=== PATIENT | female | born 1990 | race Caucasian/White ===

== ENCOUNTER 2017-07-17 13:49 | Emergency (ER) | payer OTHER ==
[~2017-07-17] VITALS: Ht 165.1 cm; Wt 78.9 kg
[~2017-07-17 13:49] MED LIST: BCPILLS PO
[2017-07-17 14:00] VITALS: TEMP 36.8; Ht 165.1 cm; Wt 78.9 kg
[2017-07-17] MEDS ORDERED: BNT10 (14:30)
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
[2017-07-17] MEDS ORDERED: IBUPROFEN 600 MG TAB PO STA (15:11)
[2017-07-17 15:35] VITALS: BP 129/77; PULSE 75; O2SAT 99
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
== END 2017-07-17 15:47 | disposition home or self-care (01) ==
LOC: C.EDB 13:52 → C.EDD 15:47
DX: M54.9 Dorsalgia, unspecified (principal); V89.2XXA Person injured in unspecified motor-vehicle accident, traffic, initial encounter; K58.9 Irritable bowel syndrome, unspecified

== ENCOUNTER 2021-11-30 23:15 | Inpatient (IN) ==
[2021-12-01] MEDS ORDERED: OXYTOCIN 30 UNITS/500 ML BAG IV PRN ×3 (00:01→21:41)
[2021-12-01] MEDS ORDERED: miSOPROStoL 50 MCG TAB PO ONE ×2 (00:01→04:53)
[2021-12-01 00:56] LABS: Hematocrit (blood only) 35.2 % (37-47); Mean Corpuscular Hemoglobin 30.5 pg (25-34); Mean Corpuscular Hgb Conc 34.1 g/dL (32-36); Mean Corpuscular Volume 89.6 fL (80-100); Mean Platelet Volume 11.3 fL (7.4-10.4); Platelet Count 218 K/uL (130-400); RDW Coefficient of Variation 13.7 % (11.5-14.5); RDW Standard Deviation 45.4 fL (36.4-46.3); Red Blood Count 3.93 M/uL (4.2-5.4); White Blood Count 13.61 K/uL (4.8-10.8)
[2021-12-01] MEDS: LACTATED RINGER'S 1,000 ML IV PRN ×2 (13:05→19:21)
[2021-12-01] MEDS ORDERED: BUTORPHANOL TARTRATE 1 MG/ML VIAL IV PRN (15:45)
[2021-12-01] MEDS ORDERED: ePHEDrine sulfate 50 MG/ML AMP ONE (18:16)
[2021-12-01] MEDS ORDERED: fentaNYL citrate 100 MCG/2 ML VIAL ONE (18:17)
[2021-12-01] MEDS ORDERED: SODIUM CHLORIDE 0.9% INJ 10 ML VIAL ONE (18:17)
[2021-12-01] MEDS ORDERED: fentaNYL 2MCG/ML ROPIVACAINE 1.25MG/ML 100 ML BAG EPI ONE (18:17)
[2021-12-01] MEDS ORDERED: BUPIVACAINE 0.25% 30 ML VIAL ONE (18:17)
[2021-12-01] MEDS ORDERED: NALBUPHINE HCL INJ 10 MG/ML AMP IV PRN (18:50)
[2021-12-01] MEDS ORDERED: fentaNYL 2MCG/ML ROPIVACAINE 1.25MG/ML 100 ML BAG EPI PRN (18:50)
[2021-12-01] MEDS ORDERED: ePHEDrine sulfate 50 MG/ML AMP IV PRN (18:50)
[2021-12-01] MEDS ORDERED: NALOXONE HCL 1 MG in SODIUM CHLORIDE 0.9% 1000ML 1,000 ML IV PRN (18:50)
[2021-12-01] MEDS ORDERED: ONDANSETRON INJ 2 MG/ML 2 ML VIAL IV PRN (18:50)
[2021-12-01] MEDS ORDERED: diphenhydrAMINE 50 MG/ML VIAL IV PRN (18:50)
[2021-12-01] MEDS ORDERED: NALOXONE HCL 0.4 MG/1 ML VIAL/CARP IV PRN (18:50)
--- NOTE | 2021-12-01 19:00 | Anesthesiology Consultation ---
Date of Service December 01, 2021 Assessment & Plan Chart Review Chart Review: Patient NOT seen in Pre Admission Testing and Acceptable Risk for Labor Epidural Consults Requested none ASA ASA2 Proposed Anesthesia Anesthesia Type: Labor Epidural and CSE Risk / Benefits Reviewed With: PT / POA / Parent / Guardian, Accepts Plan and Informed Consent Obtained History Height/Weight Height: 5 ft 5 in Weight: 102.058 kg Allergies Allergy/AdvReac Type Severity Reaction Status Date / Time lactose Allergy Unknown irritable Verified 11/30/21 23:44 bowel Medications Home Medications Medication Instructions Recorded Confirmed Last Taken 1 1 cap PO DAILY 11/17/21 11/30/21 11/30/21 Active Medications Generic Name Dose Route Start Last Admin Trade Name Freq PRN Reason Stop Dose Admin Butorphanol Tartrate 1 mg 12/01/21 15:45 12/01/21 16:02 Butorphanol Tartrate 1 Mg/Ml Vial IV 12/31/21 15:44 1 mg PRN PRN Administration Pain Lactated Ringer's 1,000 mls @ 125 mls/hr 12/01/21 00:01 12/01/21 13:05 Lr IV 12/03/21 00:00 125 mls/hr .Q8H PRN Administration L&D Protocol Protocol Oxytocin 30 units in 500 mls @ 16 mls/hr 12/01/21 12:38 12/01/21 17:45 Pitocin IV 12/03/21 12:37 0.96 units/hr .Q24H PRN 16 mls/hr Labor Induction/Augmentation Titration Protocol 0.96 UNITS/HR NPO Date Last Intake of Fluids: 12/01/21 Time Last Intake of Fluids: 18:00 Date Last Intake of Solids: 12/01/21 Time Last Intake of Solids: 12:00 Past Medical History Medical History No known health problems Exercise / Class Metabolic Activity II 4-5 Yardwork/Stairs/Walk up hill Past Anesthesia History No Hx of Anesthesia Complications and No Family Hx of Anesthesia Complications History of PONV No Hx of PONV and No Hx of Motion Sickness Social History Smoking Status: Never smoker Hx Alcohol Use: No Hx Substance Use: No Review of Systems no chest pain or sob Physical Exam Vital Signs Last Vital Signs Temp 37.0 C 12/01/21 07:05 Pulse 92 H 12/01/21 18:54 Resp 18 12/01/21 07:05 BP 142/81 H 12/01/21 18:08 Pulse Ox 100 12/01/21 18:54 ENMT Mouth: no TMJ abnormality Thyromental Distance: > or= 3.5 Finger Breadths Mallampati Class: II Neck normal visual inspection Respiratory normal respiratory effort Auscultation: lungs clear to auscultation bilaterally Cardiovascular Rate/Rhythm: regular rate and regular rhythm Musculoskeletal Spine: normal cervical ROM Neurologic moves all extremities Psychiatric Orientation: alert and oriented x 3 Testing Laboratory Results 12/01/21 00:24 Blood Type O Positive 12/01/21 00:24 Antibody Screen NEGATIVE 12/01/21 00:24
[2021-12-01] MEDS ORDERED: ACETAMINOPHEN 325 MG TAB PO PRN (21:41)
[2021-12-01] MEDS ORDERED: bisacodyL 10 MG SUPP PR PRN (21:41)
[2021-12-01] MEDS ORDERED: BENZOCAINE 20% AER SPR 82.5 GM CAN EXT PRN (21:41)
[2021-12-01] MEDS ORDERED: HYDROCORTISONE ACETATE 25 MG SUPP PR PRN (21:41)
[2021-12-01] MEDS ORDERED: oxyCODONE/ACETAMINOPHEN 5mg/325mg TAB PO PRN (21:41)
[2021-12-01] MEDS ORDERED: ACETAMINOPHEN W/CODEINE #3 1 TAB PO PRN (21:41)
--- NOTE | 2021-12-01 22:20 | Delivery Summary ---
DATE OF PROCEDURE: 12/01/2021 DELIVERY NOTE: The patient is a 1, para 1. Blood type O positive, group B strep negative. Her gestation is 40 weeks 2 days. She was brought in for induction, requested by the patient after s he crossed her due date. She was brought in late in the evening on Monday night. She received a do se of p.o. Cytotec 50 mcg. About 4-5 hours later, she received a second dose and then about 1:00 p.m . the following day, she was started on IV Pitocin. She initially had a couple of days of Stadol. T he pain got unmanageable. She received epidural. She received good pain relief. She was augmented with IV Pitocin. She went to full dilatation, pushed out a live via direct occiput anterior p osition over an intact perineum. There was a nuchal cord x1, which could not be reduced over the hea d. It was clamped and cut. Shoulders delivered without difficulty. was suctioned through th e mouth and the nose before the body of the was delivered. breathed and cried spontane ously and was attended to by the nurses. Cord blood was taken. With IV Pitocin running, the placent a was removed intact. Inspection of the perineum revealed a very superficial first-degree laceration . This was repaired by approximating the vaginal mucosa out and to beyond the hymenal ring with a ru nning Vicryl. Then, a deep Vicryl was used to approximate the bulbocavernosus muscle and then a sepa rate running Vicryl was used to approximate the perineal skin edges. Following this, vaginal examina tion revealed no hematoma formation or sponges in the vagina. Uterus contracted nicely. Hemostasis was good. Estimated blood loss was 300 mL. Apgars would be deferred to the nurses. Job ID: [id number]
[2021-12-02] MEDS: IBUPROFEN 600 MG TAB PO PRN ×5 (03:52→20:56)
[2021-12-02 06:55] LABS: Hematocrit (blood only) 31.3 % (37-47); Hemoglobin 10.9 g/dL (12.0-16.0); Mean Corpuscular Hemoglobin 31.1 pg (25-34); Mean Corpuscular Hgb Conc 34.8 g/dL (32-36); Mean Corpuscular Volume 89.4 fL (80-100); Mean Platelet Volume 10.8 fL (7.4-10.4); Platelet Count 198 K/uL (130-400); RDW Coefficient of Variation 13.9 % (11.5-14.5); RDW Standard Deviation 45.9 fL (36.4-46.3); White Blood Count 15.73 K/uL (4.8-10.8)
--- NOTE | 2021-12-02 07:48 | Anesthesia Procedure Note ---
Date of Service December 02, 2021 Anesthesia Post Epidural Note Vital Signs Vital Signs: Temp Pulse Resp BP Pulse Ox 36.7 C 101 H 20 123/78 98 12/02/21 03:50 12/02/21 03:50 12/02/21 03:50 12/02/21 03:50 12/02/21 03:50 Notes Mental Status: alert / awake / arousable Nausea / Vomiting: adequately controlled Pain: adequately controlled Airway Patency, RR, SpO2: stable & adequate BP & HR: stable & adequate Hydration State: stable & adequate Neuraxial Anesthesia: was administered and sensory block is resolving Anesthetic Complications: no major complications apparent and Pt Satisfied with anesthetic care Epidural: Removed without complications and With tip intact
[2021-12-02] MEDS: PRENATAL VITAMIN 1 TAB PO SCH (08:04)
[2021-12-02] MEDS: DOCUSATE SODIUM 100 MG CAP PO SCH ×2 (08:04→20:56)
[2021-12-02] MEDS: FERROUS SULFATE 325 MG TAB PO SCH (08:05)
[2021-12-02] MEDS ORDERED: DIPHTHERIA/TETANUS/PERTUSSIS 0.5 ML SYR/VIAL IM ONE (09:00)
--- NOTE | 2021-12-02 12:56 | Obstetrical Progress Note ---
Date of Service December 02, 2021 Assessment & Plan Admission and Anticipated Discharge Date Admission Date: November 30, 2021 Subjective abdomen soft and non tender no calf tenderness ambulating well vaginal bleeding scant hgb 10.9 Results & Data ([facility]) Vital Signs (Past 12 Hours) Vital Signs Temp Pulse Resp BP BP Pulse Ox 12/02/21 11:16 36.6 C 106 H 18 126/81 97 12/02/21 08:14 37 C 104 H 20 119/80 98 12/02/21 03:50 36.7 C 101 H 20 123/78 98
[2021-12-02] MEDS ORDERED: bisacodyL 5 MG TABEC PO SCH (20:00)
[2021-12-03] MEDS: IBUPROFEN 600 MG TAB PO PRN (05:34)
[2021-12-03 06:41] LABS: Hematocrit (blood only) 31.9 % (37-47); Hemoglobin 10.8 g/dL (12.0-16.0)
--- NOTE | 2021-12-03 08:26 | Obstetrical Progress Note ---
Date of Service December 03, 2021 Assessment & Plan Admission and Anticipated Discharge Date Admission Date: November 30, 2021 Subjective abdomen soft and non tender no calf tenderness ambulating well vaginal bleeding scant hgb 10.8 Results & Data ([facility]) Vital Signs (Past 12 Hours) Vital Signs Temp Pulse Resp BP Pulse Ox 12/03/21 00:03 36.7 C 94 H 18 101/65 98
[2021-12-03] MEDS: FERROUS SULFATE 325 MG TAB PO SCH (08:44)
[2021-12-03] MEDS: DOCUSATE SODIUM 100 MG CAP PO SCH (08:44)
[2021-12-03] MEDS: PRENATAL VITAMIN 1 TAB PO SCH (08:44)
== END 2021-12-03 11:12 | disposition home or self-care (01) | DRG 807 ==
LOC: 4S1 23:15 → 4S2 12-02 01:03 → 4E2 12-03 09:20